=== PATIENT | male | born 1960 | race Caucasian/White ===

== ENCOUNTER 2022-09-25 01:53 | Emergency (ER) | payer OTHER, MEDICAID, SELFPAY ==
[2022-09-25] VITALS (83 sets, daily range): BP systolic 130–212; BP diastolic 75–117; PULSE 55–93; RESP 10–64; TEMP 36.7; O2SAT 94–99; BMI 29.0
--- NOTE | 2022-09-25 01:55 | ED_ITS ---
HPI - Arrhythmia/Palpitations <Felicita Pizano MD - Last Filed: 09/26/22 01:06> General Chief Complaint: Arrhythmia/Palpitations Stated Complaint: afib Time Seen by Provider: 09/25/22 01:55 History of Present Illness HPI narrative: 61-year-old gentleman with a history of paroxysmal atrial fibrillation not anticoagulated or on blood pressure or rate control medications, history of hyperlipidemia who presents after being awakened from sleep at 1:00 a.m. this morning with an irregular heartbeat. He states that he has episodes of atrial fibrillation the typically been treated with cardioversion. Last episode was about a year ago. He did have 1 episode where he self converted. Previously he is had somewhat identifiable causes such as taking extra cold medicine, excessive drinking prior to the episodes. He notes that he travels frequently in today just flew home from [place] stop for 2 beers and then went home and went to bed and was awakened with an irregular rhythm without any pain, dyspnea, diaphoresis. Notes that over the last week or so he has been having some mild mucus and blood with mixed in with his stool which he is attributed to mild case of ulcerative colitis. States that he feels a bit more bloated than usual. He describes no recent fever, cough, chills. He denies any history difficulties with prior hypertension Related Data Previous Rx's Medication Instructions Recorded apixaban 5 mg tablet 5 mg PO BID #60 tabs 09/25/22 diltiazem HCl 120 mg 120 mg PO BID #60 caps 09/25/22 capsule,extended release 12 hr Allergies Allergy/AdvReac Type Severity Reaction Status Date / Time No Known Drug Allergies Allergy Verified 09/25/22 02:02 Review of Systems <Felicita Pizano MD - Last Filed: 09/26/22 01:06> Review of Systems Narrative: Remainder of complete review of systems is otherwise unremarkable except for that included in the HPI. Patient History <Felicita Pizano MD - Last Filed: 09/26/22 01:06> Medical History (Updated 09/25/22 @ 06:16 by Felicita Pizano MD) Hyperlipidemia Paroxysmal atrial fibrillation Social History Smoking Status: Never smoker Exam <Felicita Pizano MD - Last Filed: 09/26/22 01:06> Initial Vital Signs Initial Vital Signs: Vital Signs Pulse Oximetry 98 09/25/22 01:59 Oxygen Delivery Method 09/25/22 01:59 General: Healthy appearing, in no acute distress. Able to give a complete and coherent history. Well-nourished well-developed HEENT: Moist mucous membranes, normal sclera with reactive pupils, Neck: No JVD, supple Respiratory: Lungs are clear to auscultation, no wheezing no rales no rhonchi. Full and symmetrical air movement Cardiac: Irregular rhythm without murmurs, rate in the 80-90 range. Abdomen: Soft, mild distention, nontender, good bowel tones, no flank pain Skin: Warm and dry, no rashes Neurologic: Grossly neurologically intact with no obvious asymmetries or abnormalities Extremities: No trauma, well perfused, no lower extremity edema Psych: Cooperative, appropriate insight and affect <Isaac Abdullahi DO - Last Filed: 09/25/22 09:59> Initial Vital Signs Initial Vital Signs: Vital Signs Pulse Oximetry 98 09/25/22 01:59 Oxygen Delivery Method 09/25/22 01:59 Course <Felicita Pizano MD - Last Filed: 09/26/22 01:06> Orders Ordered: Discontinued Medications Apixaban (Apixaban 5 Mg Tablet) 5 mg PO NOW ONE Stop: 09/25/22 03:32 Last Admin: 09/25/22 03:45 Dose: 5 mg Documented By: RADHA Diltiazem HCl (Diltiazem Sr 60 Mg) 120 mg PO NOW ONE Stop: 09/25/22 06:20 Last Admin: 09/25/22 06:54 Dose: 120 mg Documented By: BS Metoprolol Tartrate (Metoprolol Tartrate 5 Mg/5 Ml Inj) 5 mg IV Q5M [facility] Stop: 09/25/22 02:26 Last Admin: 09/25/22 02:34 Dose: 5 mg Documented By: Admin: 09/25/22 02:28 Dose: 5 mg Documented By: Admin: 09/25/22 02:18 Dose: 5 mg Documented By: HALEY Vital Signs Vital signs: Vital Signs - 8 hr 09/25/22 02:02 09/25/22 01:59 09/25/22 02:00 Temperature 98.1 F Pulse Rate 92 H Respiratory Rate 15 Blood Pressure 212/117 H 212/117 H Pulse Oximetry 95 98 Oxygen Delivery Method Room Air Room Air 09/25/22 02:00 09/25/22 02:03 09/25/22 02:03 Temperature Pulse Rate 90 89 Respiratory Rate 10 L Blood Pressure 205/110 H Pulse Oximetry 96 96 Oxygen Delivery Method 09/25/22 02:25 09/25/22 02:25 09/25/22 02:30 Temperature Pulse Rate 78 Respiratory Rate 12 Blood Pressure 172/111 H 170/108 H Pulse Oximetry 94 Oxygen Delivery Method 09/25/22 02:30 09/25/22 02:35 09/25/22 02:35 Temperature Pulse Rate 73 74 Respiratory Rate 15 20 Blood Pressure 169/110 H Pulse Oximetry 96 96 Oxygen Delivery Method 09/25/22 02:40 09/25/22 02:40 09/25/22 02:45 Temperature Pulse Rate 83 72 Respiratory Rate 25 H 14 Blood Pressure 161/110 H Pulse Oximetry 96 97 Oxygen Delivery Method 09/25/22 02:45 09/25/22 04:00 09/25/22 04:00 Temperature Pulse Rate 67 Respiratory Rate 12 Blood Pressure 165/116 H 161/107 H Pulse Oximetry 97 Oxygen Delivery Method 09/25/22 04:05 09/25/22 04:05 09/25/22 04:10 Temperature Pulse Rate 65 66 Respiratory Rate 14 16 Blood Pressure 166/105 H Pulse Oximetry 97 97 Oxygen Delivery Method 09/25/22 04:10 09/25/22 04:15 09/25/22 04:15 Temperature Pulse Rate 66 Respiratory Rate 15 Blood Pressure 164/109 H 163/104 H Pulse Oximetry 96 Oxygen Delivery Method 09/25/22 04:20 09/25/22 04:20 09/25/22 04:25 Temperature Pulse Rate 67 67 Respiratory Rate 15 56 H Blood Pressure 159/107 H Pulse Oximetry 97 96 Oxygen Delivery Method 09/25/22 04:25 09/25/22 04:30 09/25/22 04:30 Temperature Pulse Rate 62 Respiratory Rate 39 H Blood Pressure 173/110 H 162/103 H Pulse Oximetry 97 Oxygen Delivery Method 09/25/22 04:35 09/25/22 04:35 09/25/22 04:40 Temperature Pulse Rate 64 63 Respiratory Rate 41 H 64 H Blood Pressure 171/107 H Pulse Oximetry 96 97 Oxygen Delivery Method 09/25/22 04:40 09/25/22 04:45 09/25/22 04:45 Temperature Pulse Rate 64 Respiratory Rate 29 H Blood Pressure 161/106 H 156/100 H Pulse Oximetry 98 Oxygen Delivery Method 09/25/22 04:50 09/25/22 04:50 09/25/22 04:55 Temperature Pulse Rate 87 63 Respiratory Rate 37 H 18 Blood Pressure 156/103 H Pulse Oximetry 97 97 Oxygen Delivery Method 09/25/22 04:55 09/25/22 05:00 09/25/22 05:00 Temperature Pulse Rate 61 Respiratory Rate 17 Blood Pressure 165/86 H 165/87 H Pulse Oximetry 98 Oxygen Delivery Method 09/25/22 05:05 09/25/22 05:05 09/25/22 05:10 Temperature Pulse Rate 61 Respiratory Rate 16 Blood Pressure 159/93 H 157/92 H Pulse Oximetry 98 Oxygen Delivery Method 09/25/22 05:10 09/25/22 05:15 09/25/22 05:15 Temperature Pulse Rate 66 65 Respiratory Rate 17 22 Blood Pressure 151/100 H Pulse Oximetry 98 98 Oxygen Delivery Method 09/25/22 05:20 09/25/22 05:20 09/25/22 05:25 Temperature Pulse Rate 69 65 Respiratory Rate 25 H 20 Blood Pressure 162/104 H Pulse Oximetry 98 98 Oxygen Delivery Method 09/25/22 05:25 09/25/22 05:30 09/25/22 05:30 Temperature Pulse Rate 62 Respiratory Rate 25 H Blood Pressure 158/103 H 158/98 H Pulse Oximetry 98 Oxygen Delivery Method 09/25/22 05:35 09/25/22 05:35 09/25/22 05:40 Temperature Pulse Rate 61 Respiratory Rate 21 Blood Pressure 156/102 H 166/102 H Pulse Oximetry 98 Oxygen Delivery Method 09/25/22 05:40 09/25/22 05:50 09/25/22 05:50 Temperature Pulse Rate 60 64 Respiratory Rate 19 22 Blood Pressure 154/100 H Pulse Oximetry 98 99 Oxygen Delivery Method 09/25/22 05:55 09/25/22 05:55 09/25/22 06:00 Temperature Pulse Rate 63 Respiratory Rate 24 Blood Pressure 161/94 H 144/92 H Pulse Oximetry 98 Oxygen Delivery Method 09/25/22 06:00 09/25/22 06:05 09/25/22 06:05 Temperature Pulse Rate 66 62 Respiratory Rate 19 17 Blood Pressure 153/95 H Pulse Oximetry 96 97 Oxygen Delivery Method 09/25/22 06:10 09/25/22 06:10 09/25/22 06:15 Temperature Pulse Rate 62 61 Respiratory Rate 17 17 Blood Pressure 140/95 H Pulse Oximetry 97 97 Oxygen Delivery Method 09/25/22 06:15 09/25/22 06:20 09/25/22 06:20 Temperature Pulse Rate 60 Respiratory Rate 17 Blood Pressure 151/87 H 143/90 H Pulse Oximetry 95 Oxygen Delivery Method 09/25/22 06:25 09/25/22 06:25 09/25/22 06:30 Temperature Pulse Rate 62 Respiratory Rate 18 Blood Pressure 139/93 H 138/88 Pulse Oximetry 95 Oxygen Delivery Method 09/25/22 06:30 09/25/22 06:35 09/25/22 06:35 Temperature Pulse Rate 67 62 Respiratory Rate 17 16 Blood Pressure 146/91 H Pulse Oximetry 96 96 Oxygen Delivery Method 09/25/22 06:40 09/25/22 06:40 09/25/22 06:45 Temperature Pulse Rate 66 65 Respiratory Rate 16 22 Blood Pressure 147/90 H Pulse Oximetry 97 94 Oxygen Delivery Method 09/25/22 06:45 09/25/22 06:50 09/25/22 06:50 Temperature Pulse Rate 64 Respiratory Rate 18 Blood Pressure 145/91 H 140/95 H Pulse Oximetry 97 Oxygen Delivery Method 09/25/22 06:55 09/25/22 06:55 09/25/22 07:00 Temperature Pulse Rate 65 Respiratory Rate 23 Blood Pressure 142/100 H 154/96 H Pulse Oximetry 98 Oxygen Delivery Method 09/25/22 07:00 09/25/22 07:06 09/25/22 07:06 Temperature Pulse Rate 63 66 Respiratory Rate 15 35 H Blood Pressure 130/96 H Pulse Oximetry 97 97 Oxygen Delivery Method 09/25/22 07:10 09/25/22 07:10 09/25/22 07:15 Temperature Pulse Rate 62 67 Respiratory Rate 44 H 34 H Blood Pressure 146/98 H Pulse Oximetry 96 97 Oxygen Delivery Method 09/25/22 07:15 09/25/22 07:20 09/25/22 07:20 Temperature Pulse Rate 61 Respiratory Rate 40 H Blood Pressure 147/94 H 143/88 H Pulse Oximetry 97 Oxygen Delivery Method 09/25/22 07:25 09/25/22 07:25 09/25/22 07:30 Temperature Pulse Rate 55 L Respiratory Rate 33 H Blood Pressure 130/86 144/90 H Pulse Oximetry 97 Oxygen Delivery Method 09/25/22 07:30 09/25/22 07:35 09/25/22 07:35 Temperature Pulse Rate 60 59 L Respiratory Rate 39 H 35 H Blood Pressure 137/87 Pulse Oximetry 97 97 Oxygen Delivery Method 09/25/22 07:40 09/25/22 07:40 09/25/22 07:45 Temperature Pulse Rate 61 59 L Respiratory Rate 38 H 34 H Blood Pressure 139/83 Pulse Oximetry 97 98 Oxygen Delivery Method 09/25/22 07:45 09/25/22 07:50 09/25/22 07:50 Temperature Pulse Rate 65 Respiratory Rate 15 Blood Pressure 139/86 145/93 H Pulse Oximetry 98 Oxygen Delivery Method 09/25/22 07:55 09/25/22 07:55 09/25/22 08:00 Temperature Pulse Rate 62 Respiratory Rate 16 Blood Pressure 152/89 H 136/86 Pulse Oximetry 97 Oxygen Delivery Method 09/25/22 08:00 09/25/22 08:05 09/25/22 08:05 Temperature Pulse Rate 63 63 Respiratory Rate 16 17 Blood Pressure 130/82 Pulse Oximetry 97 97 Oxygen Delivery Method 09/25/22 08:10 09/25/22 08:10 09/25/22 08:15 Temperature Pulse Rate 68 Respiratory Rate 18 Blood Pressure 139/88 134/89 Pulse Oximetry 96 Oxygen Delivery Method 09/25/22 08:15 09/25/22 08:20 09/25/22 08:20 Temperature Pulse Rate 67 66 Respiratory Rate 17 16 Blood Pressure 138/90 Pulse Oximetry 97 96 Oxygen Delivery Method 09/25/22 08:25 09/25/22 08:25 09/25/22 08:30 Temperature Pulse Rate 72 Respiratory Rate 15 Blood Pressure 136/92 H 139/96 H Pulse Oximetry 97 Oxygen Delivery Method 09/25/22 08:30 09/25/22 08:35 09/25/22 08:35 Temperature Pulse Rate 71 67 Respiratory Rate 16 17 Blood Pressure 136/93 H Pulse Oximetry 97 96 Oxygen Delivery Method 09/25/22 08:40 09/25/22 08:40 09/25/22 08:45 Temperature Pulse Rate 68 Respiratory Rate 17 Blood Pressure 144/88 H 142/99 H Pulse Oximetry 96 Oxygen Delivery Method 09/25/22 08:45 Temperature Pulse Rate 71 Respiratory Rate 17 Blood Pressure Pulse Oximetry 97 Oxygen Delivery Method <Isaac Abdullahi DO - Last Filed: 09/25/22 09:59> Orders Ordered: Discontinued Medications Apixaban (Apixaban 5 Mg Tablet) 5 mg PO NOW ONE Stop: 09/25/22 03:32 Last Admin: 09/25/22 03:45 Dose: 5 mg Documented By: RADHA Diltiazem HCl (Diltiazem Sr 60 Mg) 120 mg PO NOW ONE Stop: 09/25/22 06:20 Last Admin: 09/25/22 06:54 Dose: 120 mg Documented By: MANNY Metoprolol Tartrate (Metoprolol Tartrate 5 Mg/5 Ml Inj) 5 mg IV Q5M [facility] Stop: 09/25/22 02:26 Last Admin: 09/25/22 02:34 Dose: 5 mg Documented By: Admin: 09/25/22 02:28 Dose: 5 mg Documented By: Admin: 09/25/22 02:18 Dose: 5 mg Documented By: HALEY Vital Signs Vital signs: Vital Signs - 8 hr 09/25/22 02:02 09/25/22 01:59 09/25/22 02:00 Temperature 98.1 F Pulse Rate 92 H Respiratory Rate 15 Blood Pressure 212/117 H 212/117 H Pulse Oximetry 95 98 Oxygen Delivery Method Room Air Room Air 09/25/22 02:00 09/25/22 02:03 09/25/22 02:03 Temperature Pulse Rate 90 89 Respiratory Rate 10 L Blood Pressure 205/110 H Pulse Oximetry 96 96 Oxygen Delivery Method 09/25/22 02:25 09/25/22 02:25 09/25/22 02:30 Temperature Pulse Rate 78 Respiratory Rate 12 Blood Pressure 172/111 H 170/108 H Pulse Oximetry 94 Oxygen Delivery Method 09/25/22 02:30 09/25/22 02:35 09/25/22 02:35 Temperature Pulse Rate 73 74 Respiratory Rate 15 20 Blood Pressure 169/110 H Pulse Oximetry 96 96 Oxygen Delivery Method 09/25/22 02:40 09/25/22 02:40 09/25/22 02:45 Temperature Pulse Rate 83 72 Respiratory Rate 25 H 14 Blood Pressure 161/110 H Pulse Oximetry 96 97 Oxygen Delivery Method 09/25/22 02:45 09/25/22 04:00 09/25/22 04:00 Temperature Pulse Rate 67 Respiratory Rate 12 Blood Pressure 165/116 H 161/107 H Pulse Oximetry 97 Oxygen Delivery Method 09/25/22 04:05 09/25/22 04:05 09/25/22 04:10 Temperature Pulse Rate 65 66 Respiratory Rate 14 16 Blood Pressure 166/105 H Pulse Oximetry 97 97 Oxygen Delivery Method 09/25/22 04:10 09/25/22 04:15 09/25/22 04:15 Temperature Pulse Rate 66 Respiratory Rate 15 Blood Pressure 164/109 H 163/104 H Pulse Oximetry 96 Oxygen Delivery Method 09/25/22 04:20 09/25/22 04:20 09/25/22 04:25 Temperature Pulse Rate 67 67 Respiratory Rate 15 56 H Blood Pressure 159/107 H Pulse Oximetry 97 96 Oxygen Delivery Method 09/25/22 04:25 09/25/22 04:30 09/25/22 04:30 Temperature Pulse Rate 62 Respiratory Rate 39 H Blood Pressure 173/110 H 162/103 H Pulse Oximetry 97 Oxygen Delivery Method 09/25/22 04:35 09/25/22 04:35 09/25/22 04:40 Temperature Pulse Rate 64 63 Respiratory Rate 41 H 64 H Blood Pressure 171/107 H Pulse Oximetry 96 97 Oxygen Delivery Method 09/25/22 04:40 09/25/22 04:45 09/25/22 04:45 Temperature Pulse Rate 64 Respiratory Rate 29 H Blood Pressure 161/106 H 156/100 H Pulse Oximetry 98 Oxygen Delivery Method 09/25/22 04:50 09/25/22 04:50 09/25/22 04:55 Temperature Pulse Rate 87 63 Respiratory Rate 37 H 18 Blood Pressure 156/103 H Pulse Oximetry 97 97 Oxygen Delivery Method 09/25/22 04:55 09/25/22 05:00 09/25/22 05:00 Temperature Pulse Rate 61 Respiratory Rate 17 Blood Pressure 165/86 H 165/87 H Pulse Oximetry 98 Oxygen Delivery Method 09/25/22 05:05 09/25/22 05:05 09/25/22 05:10 Temperature Pulse Rate 61 Respiratory Rate 16 Blood Pressure 159/93 H 157/92 H Pulse Oximetry 98 Oxygen Delivery Method 09/25/22 05:10 09/25/22 05:15 09/25/22 05:15 Temperature Pulse Rate 66 65 Respiratory Rate 17 22 Blood Pressure 151/100 H Pulse Oximetry 98 98 Oxygen Delivery Method 09/25/22 05:20 09/25/22 05:20 09/25/22 05:25 Temperature Pulse Rate 69 65 Respiratory Rate 25 H 20 Blood Pressure 162/104 H Pulse Oximetry 98 98 Oxygen Delivery Method 09/25/22 05:25 09/25/22 05:30 09/25/22 05:30 Temperature Pulse Rate 62 Respiratory Rate 25 H Blood Pressure 158/103 H 158/98 H Pulse Oximetry 98 Oxygen Delivery Method 09/25/22 05:35 09/25/22 05:35 09/25/22 05:40 Temperature Pulse Rate 61 Respiratory Rate 21 Blood Pressure 156/102 H 166/102 H Pulse Oximetry 98 Oxygen Delivery Method 09/25/22 05:40 09/25/22 05:50 09/25/22 05:50 Temperature Pulse Rate 60 64 Respiratory Rate 19 22 Blood Pressure 154/100 H Pulse Oximetry 98 99 Oxygen Delivery Method 09/25/22 05:55 09/25/22 05:55 09/25/22 06:00 Temperature Pulse Rate 63 Respiratory Rate 24 Blood Pressure 161/94 H 144/92 H Pulse Oximetry 98 Oxygen Delivery Method 09/25/22 06:00 09/25/22 06:05 09/25/22 06:05 Temperature Pulse Rate 66 62 Respiratory Rate 19 17 Blood Pressure 153/95 H Pulse Oximetry 96 97 Oxygen Delivery Method 09/25/22 06:10 09/25/22 06:10 09/25/22 06:15 Temperature Pulse Rate 62 61 Respiratory Rate 17 17 Blood Pressure 140/95 H Pulse Oximetry 97 97 Oxygen Delivery Method 09/25/22 06:15 09/25/22 06:20 09/25/22 06:20 Temperature Pulse Rate 60 Respiratory Rate 17 Blood Pressure 151/87 H 143/90 H Pulse Oximetry 95 Oxygen Delivery Method 09/25/22 06:25 09/25/22 06:25 09/25/22 06:30 Temperature Pulse Rate 62 Respiratory Rate 18 Blood Pressure 139/93 H 138/88 Pulse Oximetry 95 Oxygen Delivery Method 09/25/22 06:30 09/25/22 06:35 09/25/22 06:35 Temperature Pulse Rate 67 62 Respiratory Rate 17 16 Blood Pressure 146/91 H Pulse Oximetry 96 96 Oxygen Delivery Method 09/25/22 06:40 09/25/22 06:40 09/25/22 06:45 Temperature Pulse Rate 66 65 Respiratory Rate 16 22 Blood Pressure 147/90 H Pulse Oximetry 97 94 Oxygen Delivery Method 09/25/22 06:45 09/25/22 06:50 09/25/22 06:50 Temperature Pulse Rate 64 Respiratory Rate 18 Blood Pressure 145/91 H 140/95 H Pulse Oximetry 97 Oxygen Delivery Method 09/25/22 06:55 09/25/22 06:55 09/25/22 07:00 Temperature Pulse Rate 65 Respiratory Rate 23 Blood Pressure 142/100 H 154/96 H Pulse Oximetry 98 Oxygen Delivery Method 09/25/22 07:00 09/25/22 07:06 09/25/22 07:06 Temperature Pulse Rate 63 66 Respiratory Rate 15 35 H Blood Pressure 130/96 H Pulse Oximetry 97 97 Oxygen Delivery Method 09/25/22 07:10 09/25/22 07:10 09/25/22 07:15 Temperature Pulse Rate 62 67 Respiratory Rate 44 H 34 H Blood Pressure 146/98 H Pulse Oximetry 96 97 Oxygen Delivery Method 09/25/22 07:15 09/25/22 07:20 09/25/22 07:20 Temperature Pulse Rate 61 Respiratory Rate 40 H Blood Pressure 147/94 H 143/88 H Pulse Oximetry 97 Oxygen Delivery Method 09/25/22 07:25 09/25/22 07:25 09/25/22 07:30 Temperature Pulse Rate 55 L Respiratory Rate 33 H Blood Pressure 130/86 144/90 H Pulse Oximetry 97 Oxygen Delivery Method 09/25/22 07:30 09/25/22 07:35 09/25/22 07:35 Temperature Pulse Rate 60 59 L Respiratory Rate 39 H 35 H Blood Pressure 137/87 Pulse Oximetry 97 97 Oxygen Delivery Method 09/25/22 07:40 09/25/22 07:40 09/25/22 07:45 Temperature Pulse Rate 61 59 L Respiratory Rate 38 H 34 H Blood Pressure 139/83 Pulse Oximetry 97 98 Oxygen Delivery Method 09/25/22 07:45 09/25/22 07:50 09/25/22 07:50 Temperature Pulse Rate 65 Respiratory Rate 15 Blood Pressure 139/86 145/93 H Pulse Oximetry 98 Oxygen Delivery Method 09/25/22 07:55 09/25/22 07:55 09/25/22 08:00 Temperature Pulse Rate 62 Respiratory Rate 16 Blood Pressure 152/89 H 136/86 Pulse Oximetry 97 Oxygen Delivery Method 09/25/22 08:00 09/25/22 08:05 09/25/22 08:05 Temperature Pulse Rate 63 63 Respiratory Rate 16 17 Blood Pressure 130/82 Pulse Oximetry 97 97 Oxygen Delivery Method 09/25/22 08:10 09/25/22 08:10 09/25/22 08:15 Temperature Pulse Rate 68 Respiratory Rate 18 Blood Pressure 139/88 134/89 Pulse Oximetry 96 Oxygen Delivery Method 09/25/22 08:15 09/25/22 08:20 09/25/22 08:20 Temperature Pulse Rate 67 66 Respiratory Rate 17 16 Blood Pressure 138/90 Pulse Oximetry 97 96 Oxygen Delivery Method 09/25/22 08:25 09/25/22 08:25 09/25/22 08:30 Temperature Pulse Rate 72 Respiratory Rate 15 Blood Pressure 136/92 H 139/96 H Pulse Oximetry 97 Oxygen Delivery Method 09/25/22 08:30 09/25/22 08:35 09/25/22 08:35 Temperature Pulse Rate 71 67 Respiratory Rate 16 17 Blood Pressure 136/93 H Pulse Oximetry 97 96 Oxygen Delivery Method 09/25/22 08:40 09/25/22 08:40 09/25/22 08:45 Temperature Pulse Rate 68 Respiratory Rate 17 Blood Pressure 144/88 H 142/99 H Pulse Oximetry 96 Oxygen Delivery Method 09/25/22 08:45 Temperature Pulse Rate 71 Respiratory Rate 17 Blood Pressure Pulse Oximetry 97 Oxygen Delivery Method MDM - Arrhythmia/Palpitations <Felicita Pizano MD - Last Filed: 09/26/22 01:06> Lab Data 09/25/22 02:03 09/25/22 02:03 Labs: Lab Results 09/25/22 09/25/22 09/25/22 Range/Units 02:03 02:03 02:03 WBC 7.2 (4.5-11.0) X10^3/uL RBC 5.04 (4.5-5.9) X10^6/uL Hgb 16.0 (13.5-17.5) g/dL Hct 47.0 (41-53) % MCV 93.3 (80-100) fL MCH 31.8 (26-34) PG MCHC 34.1 (30-36) % RDW 12.6 (11.6-14.8) % Plt Count 269 (150-400) X10^3/uL Neut % (Auto) 54.9 (50-75) % Lymph % (Auto) 30.1 (25-40) % Creek % (Auto) 9.7 (3-14) % Eos % (Auto) 4.0 (2-4) % Baso % (Auto) 1.3 (0-2) % Neut # (Auto) 3900 (3079-9968) /uL Lymph # (Auto) 2200 (2989-7861) /uL [place] # (Auto) 700 (0-900) /uL Eos # (Auto) 300 (0-450) /uL Baso # (Auto) 100 (0-100) /uL D-Dimer 382 (<500) ng/ml Sodium 141 (137-145) mmol/L Potassium 3.7 (3.4-5.1) mmol/L Chloride 103 (98-107) mmol/L Carbon Dioxide 30 (22-32) mmol/L BUN 16 (9-20) mg/dL Creatinine 0.89 (0.66-1.25) mg/dL Estimated GFR > 60 (>60) mL/min BUN/Creatinine Ratio 18.0 (6-22) Glucose 91 (80-110) mg/dL Calcium 9.1 (8.4-10.2) mg/dL Magnesium 2.0 (1.6-2.3) mg/dL Total Bilirubin 0.5 (0.2-1.3) mg/dL AST 31 (17-59) IU/L ALT 30 (<50) IU/L Alkaline Phosphatase 55 (38-126) U/L Troponin I < 0.012 (0.01-0.034) ng/mL NT-Pro-B Natriuret Pep 50 (<125) pg/mL Total Protein 8.5 H (6.3-8.2) g/dL Albumin 4.6 (3.5-5.0) g/dL Globulin 3.9 (1.7-4.1) g/dL Albumin/Globulin Ratio 1.2 (1.0-2.8) Imaging Data Chest x-ray: Radiologist's Impresson: No cardiopulmonary pathology Dr Sara Dickinson echocardiogram: Radiologist's Impresson: Interpretation Summary 1) Normal left ventricular thickness, size, wall motion, and systolic function (EF 60-65%). 2) Normal right ventricular size and function. 3) No significant valvular abnormalities. 4) The aortic root is moderately dilated. 5) No prior Echo available for comparison. ? Procedure: ? A two-dimensional transthoracic echocardiogram with color flow and Doppler was performed. The study quality was technically adequate. There is no prior echocardiogram noted for this patient. The patient was in atrial fibrillation with heart rates between 65-80 bpm during the exam. Left Ventricle: ? There is mild concentric left ventricular hypertrophy. The left ventricular cavity is small. The ejection fraction is estimated to be 55- 60%. Left ventricular systolic function appears normal without focal wall motion abnormalities. Diastolic function could not be accurately assessed due to atrial fibrillation. Right Ventricle: ? The right ventricle is normal in size and function. Atria: ? The left atrial size is normal. Right atrial size is normal. There is no Doppler evidence for an interatrial shunt. Mitral Valve: ? There is mild mitral annular calcification. There is a flat closure plane of the the mitral valve leaflets. There is trace mitral regurgitation. Aortic Valve: ? The aortic valve is trileaflet. There is no aortic valve stenosis. No aortic regurgitation is present. Tricuspid Valve: ? The tricuspid valve is normal in structure and function. There is trace tricuspid regurgitation. The right ventricular systolic pressure is estimated to be at least 22 mmHg based on an estimated right atrial pressure of 3 mm Hg. Pulmonic Valve: ? The pulmonic valve leaflets are thin and pliable; valve motion is normal. There is no pulmonic valvular regurgitation. Great Vessels: ? The aortic root is moderately dilated. The ascending aorta is mildly enlarged. The IVC is of normal diameter and collapses greater than 50% with a sniff. This suggests a low right atrial pressure of 3 mm Hg. Pericardium/ Pleura ? There is no pericardial effusion. There is no pleural effusion. ? ECG Data Interpretation: Atrial fibrillation at a rate of 84 No acute ischemia MDM Narrative Medical decision making narrative: CC: Paroxysmal atrial fibrillation started at 1:00 a.m. no chest pain but heart feels irregular. This is a new presentation of a prior problem, uncertain etiology and uncertain prognosis Complicating co-morbidities: Travel, recent alcohol use, prior history of paroxysmal atrial fibrillation Corroborating data: Data collected from: patient, Social determinants of health that may influence the patients condition: Access to healthcare. He states that he was no longer qualifying for [place] insurance recently applied for [facility] insurance but has not seen a primary care provider in an extended period of time Medical records reviewed: No medical records are available for review Differential considered: Atrial fibrillation, holiday heart, other cardiomyopathy, acute coronary syndrome, pulmonary embolism bacterial or viral infection Exam documented above, pertinent findings include: Irregular heart not particularly tachycardic with remainder of exam benign Lab Test results independently reviewed as above. Pertinent findings: CBC is unremarkable, no anemia Chemistries are unremarkable Troponin is negative Independently reviewed EKG as above Imaging studies independently reviewed: No cardiomegaly or fluid overload Consultations: 545am Dr Salinas, cardiology. He agrees with not doing electrical cardioversion in the emergency department this morning. Recommended echocardiogram later this morning, agrees with continuing anticoagulation and with starting diltiazem 120 mg extended release b.i.d. for blood pressure and rate control. Face sheet for this patient has been sent to Dr. Stevens's office and they will contact the patient for appropriate outpatient follow-up Treatments: Given 3 doses of IV metoprolol with rate slowing into the 70s. Minimal effect on blood pressure Re-evaluations: 320am re-evaluated. Heart rate is in the 60s to 70s still atrial fibrillation however patient can not since the atrial fibrillation with a slower rate. I am somewhat concerned that he has been going in and out of atrial fibrillation far more than he is aware. His blood pressure remains elevated and he states that he is ?very sure that it is not usually elevated as it has been normal once or twice over the last 2 years in the doctor's office?. After prior treatment for hypertension he would lost weight and made some dietary changes. He does not have a blood pressure monitor at home. Discussion: Paroxysmal atrial fibrillation. Unsure how frequently he actually is in atrial fibrillation as he does not sense it unless it is rapid. Will start him on apixaban 5 mg b.i.d., diltiazem extended release 120 mg b.i.d. Will sign the the patient out to Dr. Abdullahi to arrange for echocardiogram this morning. Discharge instructions including medications will be written. Will anticipate outpatient follow-up is arranged per Dr. Salinas's office. Disposition: see below, along with detailed discharge instructions that have been reviewed with patient as well as indications for ED re-evaluation and additional outpatient follow up <Isaac Abdullahi DO - Last Filed: 09/25/22 09:59> Lab Data Labs: Lab Results 09/25/22 09/25/22 09/25/22 Range/Units 02:03 02:03 02:03 WBC 7.2 (4.5-11.0) X10^3/uL RBC 5.04 (4.5-5.9) X10^6/uL Hgb 16.0 (13.5-17.5) g/dL Hct 47.0 (41-53) % MCV 93.3 (80-100) fL MCH 31.8 (26-34) PG MCHC 34.1 (30-36) % RDW 12.6 (11.6-14.8) % Plt Count 269 (150-400) X10^3/uL Neut % (Auto) 54.9 (50-75) % Lymph % (Auto) 30.1 (25-40) % Creek % (Auto) 9.7 (3-14) % Eos % (Auto) 4.0 (2-4) % Baso % (Auto) 1.3 (0-2) % Neut # (Auto) 3900 (6918-7326) /uL Lymph # (Auto) 2200 (1432-0644) /uL Creek # (Auto) 700 (0-900) /uL Eos # (Auto) 300 (0-450) /uL Baso # (Auto) 100 (0-100) /uL D-Dimer 382 (<500) ng/ml Sodium 141 (137-145) mmol/L Potassium 3.7 (3.4-5.1) mmol/L Chloride 103 (98-107) mmol/L Carbon Dioxide 30 (22-32) mmol/L BUN 16 (9-20) mg/dL Creatinine 0.89 (0.66-1.25) mg/dL Estimated GFR > 60 (>60) mL/min BUN/Creatinine Ratio 18.0 (6-22) Glucose 91 (80-110) mg/dL Calcium 9.1 (8.4-10.2) mg/dL Magnesium 2.0 (1.6-2.3) mg/dL Total Bilirubin 0.5 (0.2-1.3) mg/dL AST 31 (17-59) IU/L ALT 30 (<50) IU/L Alkaline Phosphatase 55 (38-126) U/L Troponin I < 0.012 (0.01-0.034) ng/mL NT-Pro-B Natriuret Pep 50 (<125) pg/mL Total Protein 8.5 H (6.3-8.2) g/dL Albumin 4.6 (3.5-5.0) g/dL Globulin 3.9 (1.7-4.1) g/dL Albumin/Globulin Ratio 1.2 (1.0-2.8) MDM Narrative Medical decision making narrative: CC: Paroxysmal atrial fibrillation started at 1:00 a.m. no chest pain but heart feels irregular. This is a new presentation of a prior problem, uncertain etiology and uncertain prognosis Complicating co-morbidities: Travel, recent alcohol use, prior history of paroxysmal atrial fibrillation Corroborating data: Data collected from: patient, Social determinants of health that may influence the patients condition: Access to healthcare. He states that he was no longer qualifying for [place] insurance recently applied for [facility] insurance but has not seen a primary care provider in an extended period of time Medical records reviewed: No medical records are available for review Differential considered: Atrial fibrillation, holiday heart, other cardiomyopathy, acute coronary syndrome, pulmonary embolism bacterial or viral infection Exam documented above, pertinent findings include: Irregular heart not particularly tachycardic with remainder of exam benign Lab Test results independently reviewed as above. Pertinent findings: CBC is unremarkable, no anemia Chemistries are unremarkable Troponin is negative Independently reviewed EKG as above Imaging studies independently reviewed: No cardiomegaly or fluid overload Consultations: 545am Dr Salinas, cardiology. He agrees with not doing electrical cardioversion in the emergency department this morning. Recommended echocardiogram later this morning, agrees with continuing anticoagulation and with starting diltiazem 120 mg extended release b.i.d. for blood pressure and rate control. Face sheet for this patient has been sent to Dr. Stevens's office and they will contact the patient for appropriate outpatient follow-up Treatments: Given 3 doses of IV metoprolol with rate slowing into the 70s. Minimal effect on blood pressure Re-evaluations: 320am re-evaluated. Heart rate is in the 60s to 70s still atrial fibrillation however patient can not since the atrial fibrillation with a slower rate. I am somewhat concerned that he has been going in and out of atrial fibrillation far more than he is aware. His blood pressure remains elevated and he states that he is ?very sure that it is not usually elevated as it has been normal once or twice over the last 2 years in the doctor's office?. After prior treatment for hypertension he would lost weight and made some dietary changes. He does not have a blood pressure monitor at home. Discussion: Paroxysmal atrial fibrillation. Unsure how frequently he actually is in atrial fibrillation as he does not sense it unless it is rapid. Will st art him on apixaban 5 mg b.i.d., diltiazem extended release 120 mg b.i.d. Will sign the the patient out to Dr. Abdullahi to arrange for echocardiogram this morning. Discharge instructions including medications will be written. Will anticipate outpatient follow-up is arranged per Dr. Salinas's office. Disposition: see below, along with detailed discharge instructions that have been reviewed with patient as well as indications for ED re-evaluation and additional outpatient follow up Dr abdullahi: Patient received echocardiogram. I discussed return precautions. He expressed understanding and agreement. Discharge Plan Departure Patient Disposition: Home Clinical Impression: Paroxysmal A-fib, Hypertension Instructions: DI for Atrial Fibrillation, DI for High Blood Pressure Activity Restrictions/Additional Instructions: Thank you for coming in today You are in atrial fibrillation. I am concerned that you have had more episodes of atrial fibrillation than you are aware of. You are able to sense the irregularity when your heart is beating fast however when it is slow it is more difficult for you to tell. Doing a electrical cardioversion in the setting would put you at increased risk for stroke and is not indicated today. I have spoken with our vegetable trimmer on-call this evening, Dr. Salinas. His office will be contacting you to set up a follow-up appointment. In the emergency department you had an echocardiogram done and results will be reviewed when you do follow-up with the vegetable trimmer. I am going to send you home with prescriptions for apixaban/Eliquis 5 mg morning and evening. This is an anticoagulant to help prevent stroke. I am also going to give you a pres cription for diltiazem 120 mg to take morning and evening for blood pressure and heart rate control. You do need buy a new blood pressure cuff and I would recommend checking in recording your blood pressure 2 to 3 hours after taking the diltiazem in the morning. Please also do pay attention to your apple watch to see if it can help you determine when you are and are not in atrial fibrillation. If you have worsening symptoms, chest pain, exertional shortness of breath, these are all reasons to return to the emergency department. Prescriptions: New diltiazem HCl 120 mg capsule,extended release 12 hr 120 mg PO BID Qty: 60 1RF apixaban 5 mg tablet 5 mg PO BID Qty: 60 1RF Stand Alone Forms: Patient Portal/API
--- NOTE | 2022-09-25 02:12 | DI.RAD.S_ITS ---
PROCEDURE: XR CHEST 1V INDICATIONS: new atrial fibrillation TECHNIQUE: One view of the chest was acquired. COMPARISON: None. FINDINGS: Surgical changes and devices: None. Lungs and pleura: Lungs are clear. No pleural effusions or pneumothorax. Mediastinum: Mediastinal contours appear normal. Heart size is normal. Bones and chest wall: No suspicious bony lesions. Overlying soft tissues appear unremarkable. IMPRESSION: No acute cardiopulmonary findings Approved by: Claudio Philip M.D. on 09/25/2022 at 8:04
[2022-09-25] MEDS: METOPROLOL TARTRATE 5 MG/5 ML INJ IV ×3 (02:18→02:34)
[2022-09-25 02:41] LABS: Add Manual Diff / Slide Review NO; Basophils Absolute Auto 100 /uL (0-100); Basophils Percent Auto 1.3 % (0-2); Eosinophils Absolute Auto 300 /uL (0-450); Lymphocytes Absolute Auto 2200 /uL (1100-4500); Lymphocytes Percent Auto 30.1 % (25-40); Mean Corpuscular HGB Conc 34.1 % (30-36); Mean Corpuscular Hemoglobin 31.8 PG (26-34); Mean Corpuscular Volume 93.3 fL (80-100); Monocytes Absolute Auto 700 /uL (0-900); Monocytes Percent Auto 9.7 % (3-14); Neutrophils Absolute Auto 3900 /uL (1500-7000); Neutrophils Percent Auto 54.9 % (50-75); Platelet Count 269 X10^3/uL (150-400); Red Blood Cell Count 5.04 X10^6/uL (4.5-5.9); Red Cell Distribution Width 12.6 % (11.6-14.8); White Blood Cell Count 7.2 X10^3/uL (4.5-11.0)
[2022-09-25 02:50] LABS: D Dimer 382 ng/ml (<500)
[2022-09-25 02:52] LABS: Alanine Aminotransferase 30 IU/L (<50); Albumin 4.6 g/dL (3.5-5.0); Albumin Globulin Ratio 1.2 (1.0-2.8); Alkaline Phosphatase 55 U/L (38-126); Aspartate Aminotransferase 31 IU/L (17-59); Bilirubin Total 0.5 mg/dL (0.2-1.3); Blood Urea Nitrogen 16 mg/dL (9-20); Calcium 9.1 mg/dL (8.4-10.2); Carbon Dioxide 30 mmol/L (22-32); Chloride 103 mmol/L (98-107); Estimated Glomerular Filt Rate > 60 mL/min (>60); Globulin 3.9 g/dL (1.7-4.1); Glucose 91 mg/dL (80-110); HEMOLYSIS < 15 (0-50); Potassium 3.7 mmol/L (3.4-5.1); Sodium 141 mmol/L (137-145); Total Protein 8.5 g/dL (6.3-8.2)
[2022-09-25 03:04] LABS: NT-proBNP (BNP-Adult 18+) 50 pg/mL (<125); Troponin I < 0.012 ng/mL (0.01-0.034)
[2022-09-25] MEDS: APIXABAN 5 MG TABLET PO (03:45)
--- NOTE | 2022-09-25 06:11 | DI.ECHO.S_ITS ---
[facility]+ [facility] +---------+ : : [address] : [place] : : : : [id number] : : : : Phone: [phone]+ Echocardiogram Report + + :Name: ENID GARCIA Study Date: 09/25/2022 Height: 73 in : :[facility] ReadingLocation: Weight: 220 lb : : Gender: Male BSA: 2.2 m2 : :: 1960 Age: 61 yrs BP: 145/92 mmHg: :Reason For Study: PAROXYSMAL ATRIAL FIBRILLATION : :Ordering Physician: OPAL, : :MARICARMEN Jiang Performed By: Sharmila Rosario : :Referring: MARICARMEN PATEL : + + Interpretation Summary 1) Normal left ventricular thickness, size, wall motion, and systolic function (EF 60-65%). 2) Normal right ventricular size and function. 3) No significant valvular abnormalities. 4) The aortic root is moderately dilated. 5) No prior Echo available for comparison. Procedure: A two-dimensional transthoracic echocardiogram with color flow and Doppler was performed. The study quality was technically adequate. There is no prior echocardiogram noted for this patient. The patient was in atrial fibrillation with heart rates between 65-80 bpm during the exam. Left Ventricle: There is mild concentric left ventricular hypertrophy. The left ventricular cavity is small. The ejection fraction is estimated to be 55- 60%. Left ventricular systolic function appears normal without focal wall motion abnormalities. Diastolic function could not be accurately assessed due to atrial fibrillation. Right Ventricle: The right ventricle is normal in size and function. Atria: The left atrial size is normal. Right atrial size is normal. There is no Doppler evidence for an interatrial shunt. Mitral Valve: There is mild mitral annular calcification. There is a flat closure plane of the the mitral valve leaflets. There is trace mitral regurgitation. Aortic Valve: The aortic valve is trileaflet. There is no aortic valve stenosis. No aortic regurgitation is present. Tricuspid Valve: The tricuspid valve is normal in structure and function. There is trace tricuspid regurgitation. The right ventricular systolic pressure is estimated to be at least 22 mmHg based on an estimated right atrial pressure of 3 mm Hg. Pulmonic Valve: The pulmonic valve leaflets are thin and pliable; valve motion is normal. There is no pulmonic valvular regurgitation. Great Vessels: The aortic root is moderately dilated. The ascending aorta is mildly enlarged. The IVC is of normal diameter and collapses greater than 50% with a sniff. This suggests a low right atrial pressure of 3 mm Hg. Pericardium/ Pleura There is no pericardial effusion. There is no pleural effusion. MMode/2D Measurements & Calculations LVIDd: 3.9 cm LVOT diam: 2.2 cm LVIDs: 2.8 cm Ao root diam: 4.4 cm FS: 27.1 % asc Aorta Diam: 4.0 cm IVSd: 1.2 cm LVPWd: 1.2 cm LV gaspar. diameter/BSA (cm/m^2): 1.7 LV sys. diameter/BSA (cm/m^2): 1.3 LA A2 area: 22.7 cm2 RA long axis: 5.3 cm LA A4 area: 17.8 cm2 RA area: 14.3 cm2 LA length (vol): 5.0 cm RA vol: 33.1 ml LA vol: 68.2 ml RA : 14.8 ml/m2 LA vol index: 30.4 ml/m2 IVC diam: 1.8 cm RVD1 (basal): 3.7 cm RVD2 (mid): 2.9 cm TAPSE: 2.0 cm Doppler Measurements & Calculations Ao V2 max: 114.6 cm/sec LVOT Max Lorena: 101.2 cm/sec Ao V2 mean: 90.1 cm/sec LV V1 max P.1 mmHg Ao max P.2 mmHg LV V1 VTI: 20.2 cm Ao mean P.4 mmHg ALEXANDER(I,D): 2.9 cm2 Ao V2 VTI: 27.4 cm ALEXANDER(V,D): 3.4 cm2 sev ratio: 0.74 ALEXANDER indexed to BSA (cm^2/m^2): 1.3 MV E max lorena: 81.6 cm/sec TR max lorena: 218.3 cm/sec MV A max lorena: 2.3 cm/sec TR max P.1 mmHg MV E/A: 36.1 PA V2 max: 65.0 cm/sec Med Peak E' Lorena: 10.1 cm/sec PA V2 mean: 45.1 cm/sec E/E' med: 8.1 PA mean P.91 mmHg Lat Peak E' Lorena: 14.0 cm/sec PA pr(Accel): 31.0 mmHg E/E' lat: 5.8 E/e' average: 7.0 MV dec time: 0.16 sec SV(LVOT): 78.9 ml Reading Physician:11:28 AM
[2022-09-25] MEDS: dilTIAZem SR 60 MG 120 MG PO (06:54)
== END 2022-09-25 10:15 | disposition home or self-care (01) ==
PROVIDERS: Emergency Medicine; Emergency Provider Emergency Medicine
DX: I48.0 Paroxysmal atrial fibrillation (principal); Z79.01 Long term (current) use of anticoagulants; I10 Essential (primary) hypertension
CPT/HCPCS: 36415; 71045; 80053; 83735; 83880; 84484; 85025; 85379; 93005; 93010; 93306; 96374; 96376; 99284